=== PATIENT | male | born 1955 | race Two or more races ===

== ENCOUNTER 2018-08-05 03:11 | Emergency (ER) | payer SELFPAY ==
[~2018-08-05] VITALS: Ht 175.3 cm; Wt 81.6 kg
[2018-08-05 03:28] VITALS: BP 175/92
--- NOTE | 2018-08-05 03:40 | Emergency Room Report ---
History of Present Illness General Chief Complaint: Constipation Source: Patient Present Illness HPI Patient reports that approximately 10:00 this evening he was attempting to use the restroom However he was not able to patient also feels that he is not able to urinate Also ongoing since 10 PM Patient has a sensation to use the restroom her bowel movement Denies any vomiting or nausea however he feels extremely bloated and feels like he is going to'pop' Denies any fevers or chills denies any previous problems like this Allergies: Coded Allergies: No Known Allergies (Unverified , 08/05/18) Patient History Past Medical History: see triage record Pertinent Family History: none Reviewed Nursing Documentation: PMH: Agreed; PSxH: Agreed Nursing Documentation-PMH Past Medical History: No Stated History Review of Systems All Other Systems: negative except mentioned in HPI Physical Exam Vital Signs Date Time Temp Pulse Resp B/P (MAP) Pulse Ox O2 Delivery O2 Flow Rate FiO2 08/05/18 03:16 98.1 131 26 176/101 95 Room Air Sp02 EP Interpretation: reviewed, normal General Appearance: well appearing, no apparent distress Head: normocephalic, atraumatic Eyes: bilateral eye PERRL, bilateral eye EOMI ENT: hearing grossly normal, normal pharynx, TMs + canals normal, uvula midline Neck: full range of motion, supple, no meningismus, no bony tend Respiratory: lungs clear, normal breath sounds, no rhonchi, no respiratory distress, no retraction, no accessory muscle use Cardiovascular #1: normal peripheral pulses, regular rate, rhythm, no edema, no gallop, no JVD, no murmur Gastrointestinal: normal bowel sounds, non tender, soft, no mass, no organomegaly, non-distended, no guarding, no hernia, no pulsatile mass, no rebound Genitourinary: no CVA tenderness Musculoskeletal: normal inspection Neurologic: oriented x3, responsive, corporate buyer III-XII nml as tested, motor strength/ tone normal, sensory intact Psychiatric: mood/affect normal Skin: normal color, no rash, warm/dry, palpation normal Lymphatic: normal inspection, no adenopathy Medical Decision Making Diagnostic Impression: Primary Impression: Urinary retention ER Course Given the patient's history and presentation there was a mixed picture Patient complaining of initially constipation however after further discussion reports that he has had urinary retention as well after Felix catheter was placed we had a possibly 800 mL of urine output Patient's CT imaging does not reveal any obvious up traction blood work is at baseline levels There is evidence of enlarged prostate which can potentially described Some of the findings This also needs to be worked up for other concerns such as prostate cancer Patient feels significantly improved We will have initial conservative outpatient attempt with close outpatient follow-up and return with any changes or concerns Labs Test 08/05/18 04:24 White Blood Count 12.4 K/UL (4.8-10.8) Red Blood Count 5.23 M/UL (4.70-6.10) Hemoglobin 16.0 G/DL (14.2-18.0) Hematocrit 46.3 % (42.0-52.0) Mean Corpuscular Volume 89 FL (80-99) Mean Corpuscular Hemoglobin 30.5 PG (27.0-31.0) Mean Corpuscular Hemoglobin Concent 34.4 G/DL (32.0-36.0) Red Cell Distribution Width 11.9 % (11.6-14.8) Platelet Count 246 K/UL (150-450) Mean Platelet Volume 6.7 FL (6.5-10.1) Neutrophils (%) (Auto) % (45.0-75.0) Lymphocytes (%) (Auto) % (20.0-45.0) Monocytes (%) (Auto) % (1.0-10.0) Eosinophils (%) (Auto) % (0.0-3.0) Basophils (%) (Auto) % (0.0-2.0) Urine Color Pale yellow Urine Appearance Clear Urine pH 5 (4.5-8.0) Urine Specific [place] 1.015 (1.005-1.035) Urine Protein Negative (NEGATIVE) Urine Glucose (UA) Negative (NEGATIVE) Urine Ketones Negative (NEGATIVE) Urine Blood 5+ (NEGATIVE) Urine Nitrite Negative (NEGATIVE) Urine Bilirubin Negative (NEGATIVE) Urine Urobilinogen Normal MG/DL (0.0-1.0) Urine Leukocyte Esterase Negative (NEGATIVE) Urine RBC Tntc /HPF (0 - 0) Urine WBC 0-2 /HPF (0 - 0) Urine Squamous Epithelial Cells None /LPF (NONE/OCC) Urine Bacteria Few /HPF (NONE) Sodium Level 138 MMOL/L (136-145) Potassium Level 3.5 MMOL/L (3.5-5.1) Chloride Level 101 MMOL/L (98-107) Carbon Dioxide Level 22 MMOL/L (21-32) Anion Gap 15 mmol/L (5-15) Blood Urea Nitrogen 19 mg/dL (7-18) Creatinine 1.1 MG/DL (0.55-1.30) Estimat Glomerular Filtration Rate > 60 mL/min (>60) Glucose Level 138 MG/DL (74-106) Calcium Level 9.0 MG/DL (8.5-10.1) Total Bilirubin 0.7 MG/DL (0.2-1.0) Aspartate Amino Transf (AST/SGOT) 25 U/L (15-37) Alanine Aminotransferase (ALT/SGPT) 38 U/L (12-78) Alkaline Phosphatase 68 U/L (46-116) Total Protein 7.6 G/DL (6.4-8.2) Albumin 3.9 G/DL (3.4-5.0) Globulin 3.7 g/dL Albumin/Globulin Ratio 1.1 (1.0-2.7) Lipase 115 U/L (73-393) Urine Opiates Screen Negative (NEGATIVE) Urine Barbiturates Screen Negative (NEGATIVE) Phencyclidine (PCP) Screen Negative (NEGATIVE) Urine Amphetamines Screen Negative (NEGATIVE) Urine Benzodiazepines Screen Negative (NEGATIVE) Urine Cocaine Screen Negative (NEGATIVE) Urine Marijuana (THC) Screen Negative (NEGATIVE) CT/MRI/US Diagnostic Results CT/MRI/US Diagnostic Results : Impression CT abdomen pelvisImpression: No acute abnormality Prostatomegaly Empty bladder containing a Felix catheter. Equivocal minimal slight stranding of the perivesical fat, cystitis possible. Correlate with clinical and laboratory findings Mild fatty liver Bilateral L5 spondylolysis. No associated spondylolisthesis Last Vital Signs Date Time Temp Pulse Resp B/P (MAP) Pulse Ox O2 Delivery O2 Flow Rate FiO2 08/05/18 03:28 98.1 127 15 175/92 99 Room Air Status: improved Disposition: HOME, SELF-CARE Condition: Improved Scripts Na Phos,M-B/Na Phos,Di-Ba* (FLEET ENEMA*) 133 Ml Enema 133 ML RECTAL DAILY for 2 Days, ML 0 Refills Prov: Maria Luz Dotson DO 08/05/18 Tamsulosin HCl (Flomax) 0.4 Mg Cap.er.24h 0.4 MG ORAL DAILY for 7 Days, CAP Prov: Maria Luz Dotson DO 08/05/18 Docusate Sodium* (COLACE*) 100 Mg Capsule 100 MG ORAL TWICE A DAY for 5 Days, CAP Prov: Maria Luz Dotson DO 08/05/18 Additional Instructions: Patient is provided with the discharge instructions notified to follow up with primary doctor in the next 2-3 days otherwise return to the er with any worsening symptoms. Please note that this report is being documented using [employer] technology. This can lead to erroneous entry secondary to incorrect interpretation by the dictating instrument. Maria Luz Dotson DO Aug 05, 2018 03:40
[2018-08-05 04:31] LABS: HEMATOCRIT 46.3 % (42.0-52.0); MEAN CORPUSCULAR VOLUME 89 FL (80-99); PLATELET COUNT 246 K/UL (150-450); RED BLOOD COUNT 5.23 M/UL (4.70-6.10); RED CELL DISTRIBUTION WIDTH 11.9 % (11.6-14.8); WHITE BLOOD COUNT 12.4 K/UL (4.8-10.8)
[2018-08-05 04:33] LABS: APPEARANCE,URINE CLEAR; BILIRUBIN, URINE NEGATIVE (NEGATIVE); COLOR,URINE PALE YELLOW; GLUCOSE, URINE (UA) NEGATIVE (NEGATIVE); KETONES,URINE NEGATIVE (NEGATIVE); LEUKOCYTE ESTERASE ,URINE NEGATIVE (NEGATIVE); NITRITE,URINE NEGATIVE (NEGATIVE); PH,URINE 5 (4.5-8.0); PROTEIN,URINE NEGATIVE (NEGATIVE); UROBILINOGEN,URINE NORMAL MG/DL (0.0-1.0)
[2018-08-05 04:47] LABS: ANION GAP 15 mmol/L (5-15); BLOOD UREA NITROGEN 19 mg/dL (7-18); CARBON DIOXIDE 22 MMOL/L (21-32); CHLORIDE 101 MMOL/L (98-107); CREATININE 1.1 MG/DL (0.55-1.30); POTASSIUM 3.5 MMOL/L (3.5-5.1); SODIUM 138 MMOL/L (136-145)
[2018-08-05 04:51] LABS: ALANINE AMINOTRANSFERASE 38 U/L (12-78); ALBUMIN 3.9 G/DL (3.4-5.0); ALBUMIN/GLOBULIN RATIO 1.1 (1.0-2.7); ALKALINE PHOSPHATASE 68 U/L (46-116); ASPARTATE AMINO TRANSFERASE 25 U/L (15-37); BILIRUBIN,TOTAL 0.7 MG/DL (0.2-1.0)
[2018-08-05 05:10] VITALS: BP 135/87
[2018-08-05] MEDS ORDERED: Tamsulosin 0.4mg cap ORAL ONE (05:15)
[2018-08-05] MEDS ORDERED: FLOMAX0.4 MG ORAL (06:09)
[2018-08-05] MEDS ORDERED: COLACE100 MG ORAL (06:09)
[2018-08-05] MEDS ORDERED: FLEET ENEMA133 ML RECTAL (06:09)
[2018-08-05] MEDS ORDERED: Fleet's Enema 133ml RECTAL ONE (06:15)
[2018-08-05 06:47] VITALS: BP 143/93
[2018-08-05 06:53] VITALS: BP 143/93
--- NOTE | 2018-08-05 08:54 | Diagnostic Imaging Report ---
Indication: Abdominal pain, unable to urinate Technique: Spiral acquisitions obtained through the abdomen and pelvis. No oral contrast utilized, per emergency room physician request No IV contrast utilized, per referring physician request.. Multiplanar reconstructions were generated. Total dose length product 980.32 mGycm. CTDIvol(s) 17.25 mGy. Dose reduction achieved using automated exposure control Comparison: None Findings: The appendix is normal. There is no evidence of diverticulosis or diverticulitis. No small bowel distention. No free or loculated intraperitoneal gas or fluid is evident. Distal esophagus, stomach, duodenum are unremarkable. Lack of IV contrast limits assessment of the solid organs. The liver is mildly hypoattenuating, consistent with fatty change. The gallbladder, bile ducts, pancreas, spleen, adrenals, kidneys are unremarkable. No retroperitoneal or mesenteric mass or adenopathy. The prostate is enlarged, measures 5.6 cm transverse by 5.5 cm AP by 5.9 cm craniocaudad. There is a Felix catheter within the bladder, which is empty. Small amount of gas within the bladder lumen presumably relates to the Felix catheterization. There is equivocal slight stranding of the perivesical fat The included lung bases demonstrate generalized interstitial septal thickening. The bones demonstrate bilateral L5 spondylolysis. No associated spondylolisthesis. Impression: No acute abnormality Prostatomegaly Empty bladder containing a Felix catheter. Equivocal minimal slight stranding of the perivesical fat, cystitis possible. Correlate with clinical and laboratory findings Mild fatty liver Bilateral L5 spondylolysis. No associated spondylolisthesis This agrees with the preliminary interpretation provided overnight by [facility] teleradiology service. The CT scanner at [facility] is accredited by the [employer] [employer] and the scans are performed using protocols designed to limit radiation exposure to as low as reasonably achievable to attain images of sufficient resolution adequate for diagnostic evaluation.
== END 2018-08-05 06:54 | disposition home or self-care (01) ==
LOC: EMR 04:11
DX: R33.9 Retention of urine, unspecified (principal); N40.0 Benign prostatic hyperplasia without lower urinary tract symptoms; K59.00 Constipation, unspecified; K76.0 Fatty (change of) liver, not elsewhere classified; M47.9 Spondylosis, unspecified
CPT/HCPCS: 36415; 51702; 74176; 80053; 80307; 81003; 83690; 85025; 99284